=== PATIENT | female | born 1970 | race Caucasian/White ===

== ENCOUNTER 2022-04-02 06:20 | Inpatient (IN) ==
[2022-04-02] MEDS ORDERED: ANCEF VIAL 1 GRAM IVP ONE (06:34)
[2022-04-02] MEDS ORDERED: NS 100 ML IV 100 ML ONE (06:38)
[2022-04-02] MEDS ORDERED: D5 1/2 NS 1,000 ML 1,000 ML IV SCH (07:00)
[2022-04-02] MEDS ORDERED: VERSED ONE (07:12)
[2022-04-02] MEDS ORDERED: FENTANYL VIAL INJ 250 mcg ONE (07:12)
[2022-04-02] MEDS ORDERED: XYLOCAINE 2 % (PLAIN) ONE (07:12)
[2022-04-02] MEDS ORDERED: DIPRIVAN VIAL 20 ML ONE (07:12)
[2022-04-02] MEDS ORDERED: BRIDION ONE (07:12)
[2022-04-02] MEDS ORDERED: QUELICIN (OR ANECTINE) ONE (07:13)
[2022-04-02] MEDS ORDERED: ZOFRAN INJ 4 MG VIAL ONE (07:13)
[2022-04-02] MEDS ORDERED: ZEMURON 100 MG VIAL ONE (07:13)
[2022-04-02] MEDS ORDERED: BETADINE SOLN ONE (07:14)
[2022-04-02] MEDS ORDERED: SUPRANE ONE (07:22)
[2022-04-02 07:36] VITALS: BMI 38.9
[2022-04-02] MEDS ORDERED: ProvayBLUE 0.5% ONE (08:20)
[2022-04-02] MEDS ORDERED: DILAUDID INJ ONE (08:26)
[2022-04-02] MEDS ORDERED: EPHEDRINE SULFATE INJ ONE (09:00)
[2022-04-02] MEDS ORDERED: D5 1/2 NS 1,000 ML 1,000 ML IV ONE (09:03)
[2022-04-02] MEDS ORDERED: PHENERGAN INJ 25 MG IM PRN (10:17)
[2022-04-02] MEDS ORDERED: REGLAN INJ 10 MG VIAL IVP PRN (10:17)
[2022-04-02] MEDS ORDERED: BENADRYL INJ 50 MG VIAL IVP PRN (10:17)
[2022-04-02] MEDS ORDERED: ZOFRAN INJ 4 MG VIAL IVP PRN ×2 (10:17→11:07)
[2022-04-02] MEDS ORDERED: BARHEMSYS INJ IVP PRN (10:17)
[2022-04-02] MEDS: DILAUDID INJ IVP PRN ×2 (10:28→10:33)
[2022-04-02 10:34] LABS: HEMATOCRIT 25.9 % (36.0-47.0); HEMOGLOBIN 8.7 g/dL (12.0-16.0)
[2022-04-02] MEDS ORDERED: TORADOL 30 MG VIAL IVP PRN (11:07)
[2022-04-02] MEDS: D5 1/2 NS 1,000 ML 1,000 ML IV SCH ×2 (12:04→20:30)
[2022-04-02] MEDS: MORPHINE SULFATE PCA 30 MG IVP PRN (12:05)
[2022-04-02] MEDS ORDERED: STERILE WATER IRRIGATION IR ONE (15:15)
[2022-04-02] MEDS: BENADRYL INJ 50 MG VIAL IVP PRN (23:28)
[2022-04-03] MEDS: D5 1/2 NS 1,000 ML 1,000 ML IV SCH ×3 (04:33→20:51)
[2022-04-03] MEDS: MORPHINE SULFATE PCA 30 MG IVP PRN (04:33)
[2022-04-03 05:55] LABS: BASOPHILS % (AUTO) 0.9 % (0.2-1.0); EOSINOPHILS # (AUTO) 0.1 x10^3/uL (0.0-0.2); EOSINOPHILS % (AUTO) 1.1 % (0.9-2.9); HEMATOCRIT 23.6 % (36.0-47.0); LYMPHOCYTES # (AUTO) 1.2 X10^3/uL (1.3-2.9); LYMPHOCYTES % (AUTO) 21.5 % (21.0-51.0); MEAN CORPUSCULAR HEMOGLOBIN 28.7 pg (27.0-34.0); MEAN CORPUSCULAR HGB CONC 33.8 g/dL (33.0-35.0); MONOCYTES # (AUTO) 0.4 x10^3/uL (0.3-0.8); MONOCYTES % (AUTO) 7.1 % (0.0-13.0); NEUTROPHILS # (AUTO) 3.9 x10^3/uL (2.2-4.8); NEUTROPHILS % (AUTO) 69.4 % (42.0-75.0); RED BLOOD COUNT 2.78 X10^6/uL (3.5-5.4); RED CELL DISTRIBUTION WIDTH 23.8 % (11.6-16.5); WHITE BLOOD COUNT 5.6 X10^3/uL (3.6-10.0)
[2022-04-03 06:00] LABS: BLOOD UREA NITROGEN 9 mg/dL (7-18); CALCIUM 7.6 mg/dL (8.5-10.1); CARBON DIOXIDE 26.3 mmol/L (21-32); CHLORIDE 104 mmol/L (98-107); COR NA(FOR HYPERGLY) 138 mmol/L (136-145); CREATININE 0.88 mg/dL (0.55-1.02); SODIUM 137 mmol/L (136-145); eGFR NON BLACK RACES > 60 (>60)
[2022-04-03 06:31] LABS: ANISOCYTOSIS 2+; PLATELET MORPHOLOGY COMMENT NORMAL (NORMAL)
[2022-04-03] MEDS ORDERED: MOTRIN TAB 800 MG PO PRN (08:37)
[2022-04-03] MEDS: PROzac PO SCH (09:33)
[2022-04-03] MEDS: TENORMIN PO SCH (09:33)
[2022-04-03] MEDS: COLACE CAP 100 MG PO SCH ×2 (09:34→20:52)
[2022-04-03] MEDS: BACTROBAN TOPICAL OINT TOP SCH ×2 (13:44→21:51)
[2022-04-03] MEDS: FERROUS GLUCONATE PO SCH (16:39)
[2022-04-03] MEDS: BENADRYL INJ 50 MG VIAL IVP PRN (18:02)
[2022-04-04] MEDS: NORCO 7.5/325 MG TAB PO PRN ×2 (01:44→05:46)
[2022-04-04] MEDS: D5 1/2 NS 1,000 ML 1,000 ML IV SCH ×2 (02:24→04:12)
[2022-04-04] MEDS: BACTROBAN TOPICAL OINT TOP SCH (05:07)
[2022-04-04] MEDS: FERROUS GLUCONATE PO SCH (06:02)
[2022-04-04] MEDS: COLACE CAP 100 MG PO SCH (08:10)
[2022-04-04] MEDS: PROzac PO SCH (08:10)
[2022-04-04] MEDS: TENORMIN PO SCH (08:10)
[2022-04-04 08:30] VITALS: BP 125/60
== END 2022-04-04 09:55 | disposition home or self-care (01) | DRG 743 ==
LOC: MED/SURG 06:20
PROVIDERS: ADMIT Specialist; ATTEND Specialist
DX: D50.8 Other iron deficiency anemias; N94.4 Primary dysmenorrhea; I10 Essential (primary) hypertension; N73.6 Female pelvic peritoneal adhesions (postinfective); N92.5 Other specified irregular menstruation